=== PATIENT | male | born 1980 | race Caucasian/White ===

== ENCOUNTER 2018-12-30 08:37 | Emergency (ER) | payer OTHER ==
[2018-12-30] MEDS ORDERED: Metoclopramide HCl 10 MG/2 ML VIAL ONE (08:43)
[2018-12-30] MEDS ORDERED: diphenhydrAMINE 50 MG/ML VIAL ONE (08:43)
[2018-12-30 09:23] LABS: #Basophils 0.1 thou/uL (0.0-0.2); #Eosinphils 0.3 thou/uL (0.0-0.7); #Lymphocytes 1.7 thou/uL (1.20-3.40); #Monocytes 0.5 thou/uL (0.11-0.59); #Neutrophils 3.6 thou/uL (1.40-6.50); %Basophils 0.9 % (0.0-1.0); %Eosinophils 4.5 % (0.0-10.0); %Lymphocytes 28.1 % (21.0-51.0); %Monocytes 7.6 % (0.0-10.0); %Neutrophils 58.9 % (42.0-75.0); Hemoglobin 15.7 g/dL (14.0-18.0); Mean Corpuscular HGB CONC 34.8 g/dL (32.0-36.0); Mean Corpuscular Volume 89.1 fL (78.0-98.0); Mean Platelet Volume 8.9 fL (7.4-10.4); Platelet Count 272 thou/uL (130-400); RBC Distribution Width 11.6 % (11.5-14.5); Red Blood Cell (RBC) Count 5.06 mill/uL (4.70-6.10); White Blood Cell (WBC) Count 6.1 thou/uL (4.8-10.8)
--- NOTE | 2018-12-30 09:25 | CT ---
HEAD CT WITHOUT CONTRAST: HISTORY: Headache. COMPARISON: None. FINDINGS: No parenchymal hemorrhage. No extraaxial hematoma. No midline shift. The basilar cisterns are weber nt. Brain volume is age appropriate. Cortical baez white matter differentiation is preserved. No evidence of hydrocephalus. The calvarium is intact. Adequate aeration of the sinuses and mastoid air cells. IMPRESSION: No acute intracranial process. POS: [facility]
[2018-12-30 09:29] LABS: Prothrombin Time 13.5 SEC (12.0-14.7)
[2018-12-30 09:30] LABS: PTT 24.7 SEC (22.9-36.1)
[2018-12-30 09:44] LABS: ALT (SGPT) 66 U/L (8-55); AST (SGOT) 39 U/L (5-34); Alkaline Phosphatase 60 U/L (40-150); Anion Gap 20 mmol/L (10-20); BUN (Urea Nitrogen) 12 mg/dL (8.9-20.6); Bilirubin, Total 0.5 mg/dL (0.2-1.2); Calc. Creatinine Clearance 0 mL/min (70-130); Calcium 10.1 mg/dL (7.8-10.44); Carbon Dioxide 22 mmol/L (22-29); Chloride 103 mmol/L (98-107); Estimated GFR-MDRD 83; Globulin 2.7 g/dL (2.4-3.5); Glucose 125 mg/dL (70-105); Protein, Total 7.7 g/dL (6.0-8.3); Sodium 141 mmol/L (136-145)
== END 2018-12-30 10:07 | disposition home or self-care (01) ==
LOC: ERS 08:37
DX: R51 Headache (principal); K21.9 Gastro-esophageal reflux disease without esophagitis; E78.5 Hyperlipidemia, unspecified; I10 Essential (primary) hypertension; Z79.899 Other long term (current) drug therapy
CPT/HCPCS: 70450; 80053; 85025; 85610; 85730; 96374; 96375; J1200; J2765

== ENCOUNTER 2019-08-15 08:14 | Observation (INO) | payer OTHER ==
[2019-08-15 08:42] LABS: #Basophils 0.1 thou/uL (0.0-0.2); #Eosinphils 0.3 thou/uL (0.0-0.7); #Lymphocytes 1.3 thou/uL (1.20-3.40); #Monocytes 0.7 thou/uL (0.11-0.59); #Neutrophils 6.4 thou/uL (1.40-6.50); %Basophils 0.8 % (0.0-1.0); %Lymphocytes 14.6 % (21.0-51.0); %Monocytes 7.8 % (0.0-10.0); %Neutrophils 72.9 % (42.0-75.0); Mean Corpuscular HGB CONC 35.8 g/dL (32.0-36.0); Mean Corpuscular Hemoglobin 32.1 pg (27.0-31.0); Mean Corpuscular Volume 89.8 fL (78.0-98.0); Mean Platelet Volume 8.6 fL (7.4-10.4); Platelet Count 244 thou/uL (130-400); Red Blood Cell (RBC) Count 4.98 mill/uL (4.70-6.10); White Blood Cell (WBC) Count 8.8 thou/uL (4.8-10.8)
[2019-08-15 09:04] LABS: ALT (SGPT) 85 U/L (8-55); AST (SGOT) 56 U/L (5-34); Albumin 4.7 g/dL (3.5-5.0); Alkaline Phosphatase 68 U/L (40-110); Anion Gap 17 mmol/L (10-20); BUN (Urea Nitrogen) 14 mg/dL (8.9-20.6); Bilirubin, Total 1.1 mg/dL (0.2-1.2); CK (CPK) 214 U/L (30-200); Calc. Creatinine Clearance 0 mL/min (70-130); Calcium 9.3 mg/dL (7.8-10.44); Carbon Dioxide 23 mmol/L (22-29); Chloride 100 mmol/L (98-107); Estimated GFR-MDRD Greater than 90; Glucose 98 mg/dL (70-105); Lipase 25 U/L (8-78); Potassium 3.8 mmol/L (3.5-5.1); Protein, Total 7.7 g/dL (6.0-8.3); Sodium 136 mmol/L (136-145)
--- NOTE | 2019-08-15 09:15 | RAD ---
PORTABLE CHEST 1 VIEW: Date: 08/24/19 Time: 0838 hours HISTORY: Hypertension, tachycardia, chest pain. FINDINGS: The heart size is normal. There is elevation of the right hemidiaphragm. No focal areas of consolidat ion, pneumothoraces, or pleural effusions are seen. IMPRESSION: No acute process. POS: OFF
[2019-08-15] MEDS ORDERED: Aspirin Chewable 81 MG TAB ONE (09:24)
[2019-08-15 11:02] VITALS: BMI 28.5
[2019-08-15] MEDS ORDERED: Ondansetron ODT 4 MG TAB PO PRN (11:13)
[2019-08-15] MEDS ORDERED: Ondansetron PF 4 MG/2 ML Vial IVP PRN (11:13)
[2019-08-15] MEDS ORDERED: Sodium Chloride 0.9% 1,000 ML IV SCH (11:15)
[2019-08-15 11:55] LABS: Troponin I Less than 0.010 ng/mL (< 0.028)
--- NOTE | 2019-08-15 13:00 | CON ---
DATE OF CONSULTATION: HISTORY OF PRESENT ILLNESS: The patient is a pleasant 39-year-old gentleman with a previous history of hypertension who presented with headaches and chest discomfort and elevated blood pressure. The patient states approximately a year and a half ago, he was diagnosed with hypertension. The patient was treated initially with lisinopril. The patient states that he has had episodic episodes where he feels his blood pressure and heart rate are elevated. during which he develops headaches and dizziness. The patient recently developed a cough. He was taken off lisinopril and switched to Diovan. He noted his blood pressure had became increasingly elevated. He went to the emergency room with headaches. He also reported having chest discomfort. He states this began over a day ago. It was a persistent discomfort in the middle of his chest. The patient went to the emergency room and received IV Cardizem. He states with IV Cardizem, his symptoms subsequently resolved. He denies having any present chest discomfort. PAST MEDICAL HISTORY: 1. Hypertension. 2. Dyslipidemia. PAST SURGICAL HISTORY: None. SOCIAL HISTORY: Nonsmoker. FAMILY HISTORY: No strong family history of heart disease. ALLERGIES: NO KNOWN DRUG ALLERGIES. MEDICATIONS: Lipitor 40 daily, HCTZ 25 daily, Nexium 40 daily, and Valsartan 320 daily. PHYSICAL EXAMINATION: GENERAL: This is a well-developed gentleman, in mild distress. VITAL SIGNS: Blood pressure 130/102, heart rate is 103. NECK: No jugular venous distention. LUNGS: Clear to auscultation. HEART: Regular rate and rhythm. Normal S1, S2. No murmurs. ABDOMEN: Nondistended. EXTREMITIES: Show no edema. Vascular and radial pulses are 2+. LABORATORY DATA: Sodium 136, potassium 3.8, chloride 100, bicarbonate 23, BUN 14, creatinine 0.92, glucose was 98. His AST was 56. Troponin less than 0.01. BNP less than 1. White blood cell count 8.8, hemoglobin 16.0, hematocrit 44.7, and platelets 244. EKG revealed sinus tachycardia, otherwise normal ECG. IMPRESSION: 1. Hypertensive crisis. 2. Chest pain. 3. Elevated liver function tests. This gentleman presents with episodic episodes of hypertension associated with tachycardia. From a cardiac standpoint, his EKG is unremarkable and cardiac enzymes revealed no evidence of a myocardial infarction. The patient's symptoms are suggestive of secondary causes of hypertension. We will try to obtain a renal consultation. We will do a 24 hour urine collection for metanephrines and cortisol levels. We will draw renin and aldosterone levels. We will follow this patient with you through his hospitalization. Job ID: [id number] [id number]
[2019-08-15 13:58] LABS: Troponin I Less than 0.010 ng/mL (< 0.028)
[2019-08-15] MEDS ORDERED: Acetaminophen 325 MG TAB PO PRN (13:58)
[2019-08-15] MEDS ORDERED: Senokot S 8.6-50 MG TAB PO PRN (13:58)
--- NOTE | 2019-08-15 14:35 | HP ---
PRIMARY CARE PHYSICIAN: Chung Roman MD CHIEF COMPLAINT: Chest pressure, tachycardia, hypertension. HISTORY OF PRESENT ILLNESS: Mr. Perkins is a 39-year-old male, who reported to the emergency room after having four days of dizziness, tachycardia, hypertension, tendinitis, and headache. He reports that his headache has gotten bad enough in the last couple days, where he has had some nausea and vomiting. 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 and sees Dr. Thompson as an outpatient. He has told him about his symptoms in the last couple of days. They made some changes to his blood pressure and then when his pressure was again elevated with some tachycardia and tendinitis, he decided to come to the emergency room to get further evaluated. EKG showed sinus tach, beats per minute 104, ST segments, T-waves were normal, axis was normal. Vital signs on arrival, blood pressure 137/99, pulse 116, respirations 16, pO2 sats are 99% on room air, temperature 98.2. Troponins x3 are undetectable. He does have a bump in his liver enzymes; AST at 56, ALT 85, CK 214. Otherwise, labs were unremarkable. The patient was admitted to the observation unit for further management and cardiac consult. PAST MEDICAL HISTORY: Pertinent for GERD, ADHD, hypertension, and also depression. He had a right paratracheal mass in 2010. PAST SURGICAL HISTORY: He had a tonsillectomy and vasectomy, which was reversed. FAMILY HISTORY: Father, hypertension. Mom, hypertension and high cholesterol. SOCIAL HISTORY: The patient drinks alcohol occasionally. Denies any drug use or smoking history. CURRENT MEDICATIONS: 1. Lipitor 40 mg p.o. daily. 2. Prilosec 40 mg p.o. daily. 3. Hydrochlorothiazide 25 mg p.o. q.a.m. 4. Valsartan 320 mg p.o. at bedtime. ALLERGIES: NONE. REVIEW OF SYSTEMS: The patient reports no fever or chills. Reports headache. Epistaxis is negative. He does report some tendinitis. Reports some shortness of breath and some chest pressure. Reports nausea and vomiting. Denies any diarrhea, abdominal pain, or constipation. Reports palpitations. Denies any focal weakness. All systems are reviewed and are negative unless mentioned in HPI. PHYSICAL EXAMINATION: VITAL SIGNS: Blood pressure 164/96, pulse is 89, respirations 18, pO2 sats are 98% on room air. CONSTITUTIONAL: The patient appears nontoxic. He is alert and oriented to person, place, and time. HEENT: Head is atraumatic and normocephalic. Eyes, pupils are equally round and reactive to light. Extraocular muscles are intact. ENT, mouth exam is normal. Mucous membranes are moist. NECK: Trachea is midline. Normal range of motion. RESPIRATORY/CHEST: Breath sounds are clear. Chest expansion is equal. CARDIOVASCULAR: Rate tachycardic. Heart sounds are normal. ABDOMEN: Nontender. Bowel sounds are heard. BACK: Normal range of motion. No tenderness. EXTREMITIES: Upper extremities; normal strength, normal range of motion. Lower extremities, motor strength is normal. Normal range of motion. Pedal pulses are normal. SKIN: Warm, dry, and normal in color. PLAN AND ASSESSMENT: 1. Tachycardia with some chest pressure, negative three troponins and no EKG changes. We will ask Cardiology to consult. We would appreciate their recommendations. 2. Hyperlipidemia. The patient takes Lipitor. For the elevated liver function tests, we will hold the doses tonight and recheck liver enzymes in the morning. 3. Deep venous thrombosis and gastrointestinal prophylaxis have been started. 4. Case was discussed with Dr. Thompson, who agrees to plan. 5. Hospital course pending clinical findings. Job ID: [id number]
[2019-08-15] MEDS: diphenhydrAMINE 25 MG CAP PO PRN (21:34)
[2019-08-16 05:37] LABS: #Eosinphils 0.3 thou/uL (0.0-0.7); #Lymphocytes 1.3 thou/uL (1.20-3.40); #Monocytes 0.6 thou/uL (0.11-0.59); #Neutrophils 3.9 thou/uL (1.40-6.50); %Basophils 0.5 % (0.0-1.0); %Eosinophils 5.6 % (0.0-10.0); %Lymphocytes 21.3 % (21.0-51.0); %Monocytes 9.7 % (0.0-10.0); Hemoglobin 14.4 g/dL (14.0-18.0); Mean Corpuscular HGB CONC 35.8 g/dL (32.0-36.0); Mean Corpuscular Hemoglobin 31.9 pg (27.0-31.0); Mean Corpuscular Volume 89.1 fL (78.0-98.0); Mean Platelet Volume 8.5 fL (7.4-10.4); Platelet Count 216 thou/uL (130-400); RBC Distribution Width 11.8 % (11.5-14.5); Red Blood Cell (RBC) Count 4.53 mill/uL (4.70-6.10); White Blood Cell (WBC) Count 6.2 thou/uL (4.8-10.8)
[2019-08-16 05:50] LABS: ALT (SGPT) 70 U/L (8-55); AST (SGOT) 41 U/L (5-34); Albumin 4.3 g/dL (3.5-5.0); Alkaline Phosphatase 69 U/L (40-110); Anion Gap 14 mmol/L (10-20); BUN (Urea Nitrogen) 16 mg/dL (8.9-20.6); Bilirubin, Total 0.8 mg/dL (0.2-1.2); Calc. Creatinine Clearance 136 mL/min (70-130); Calcium 9.2 mg/dL (7.8-10.44); Carbon Dioxide 26 mmol/L (22-29); Chloride 103 mmol/L (98-107); Estimated GFR-MDRD 85; Globulin 2.5 g/dL (2.4-3.5); Glucose 110 mg/dL (70-105); Potassium 3.6 mmol/L (3.5-5.1); Protein, Total 6.8 g/dL (6.0-8.3); Sodium 139 mmol/L (136-145)
--- NOTE | 2019-08-16 08:17 | PRG ---
DATE OF SERVICE: 08/16/2019 SUBJECTIVE: Patient was seen and examined at bedside and overnight events noted. Patient denies any shortness of breath or chest pain or palpitation. No history of nausea or vomiting or diarrhea or fever or chills or cramps. OBJECTIVE: GENERAL: This is a well-built male in no acute distress. VITAL SIGNS: Temperature 97.9. Heart rate 70. Respiratory rate 18. Blood pressure 144/88. HEENT: Atraumatic, normocephalic. Oral mucosa is moist NECK: Supple. CARDIOVASCULAR: S1, S2 heard. Rate and rhythm regular. RESPIRATORY: Clear to auscultation. GASTROINTESTINAL: Abdomen is soft. MUSCULOSKELETAL: No tenderness. No edema. DERMATOLOGIC: No skin rash. NEUROLOGIC: Alert and awake and oriented X3. No focal neurologic deficits. Moving all the extremities. PSYCHIATRIC: Mood and affect normal. LABORATORY DATA: Potassium 3.6, BUN is 16, creatinine is 0.9. ASSESSMENT AND PLAN: 1. Hypertension. Clinical history concerning for secondary causes. Cortisol level is normal. Renin, aldosterone level and metanephrines are pending. I had discussion with the family and they would like to do the CT scan too while he is here. Plan is to do CT adrenal protocol. Renal ultrasound. Doppler is also pending. 2. Plan to check CT today and awaiting the results of the hormonal workup. Blood pressure remained stable. We will continue to titrate medication. 3. Chronic kidney disease, stage 2. 4. Edema is controlled. 5. Tachycardia. Follow with Cardiology and primary team. 6. We will continue to follow. Awaiting the results. Job ID: [id number]
--- NOTE | 2019-08-16 08:41 | ULT ---
US Renal Bilateral STANDARD History: Renal artery stenosis. Hypertension. Comparison: None. Findings: Real-time grayscale, color, and spectral analysis of the kidneys and renal arteries was per formed. Diffuse increased hepatic echotexture. Right kidney measures 12.2 x 5.4 x 6.4 cm and the left kidney measures 10.8 x 5.7 x 5 cm. No renal mass, hydronephrosis, or abnormal calcifications. Prevoid urinary bladder volume is 582 mL. The aortic peak systolic velocity is 85 cm/s. Renal artery peak systolic velocity on the right measur es 140 cm/s and the left renal artery peak systolic measures 125 cm/s. Both renal artery/aortic ratios are less than 2. Right arcuate vessel resistive index is 0.64 and the left arcuate vessel resistive index is 0.61. Impression: No evidence for renal artery stenosis.
[2019-08-16] MEDS: diphenhydrAMINE 25 MG CAP PO PRN (08:53)
[2019-08-16] MEDS ORDERED: Valsartan 80 MG TAB PO SCH (09:00)
[2019-08-16] MEDS ORDERED: Hydrochlorothiazide 25 MG TAB PO SCH (09:00)
[2019-08-16 11:46] VITALS: TEMP 98.1
[2019-08-16] MEDS ORDERED: Iopamidol 370 76% 100 ML VIAL ONE (12:00)
--- NOTE | 2019-08-16 13:25 | CT ---
CT Abdomen Pelvis W WO con History: Adrenal adenoma Comparison: None. Findings: The lung bases are clear. No pericardial effusion. A few specks steatosis. No nephroureterolithiasis. No adrenal mass. No abnormal enhancing mass in the abdomen. No filling defects within the renal calyces proximal ureters nor the renal pelvis by. There is no acute osseous abnormality. Impression: Normal examination of the abdomen. No adrenal adenoma.
[2019-08-16 14:53] VITALS: BP 114/75
--- NOTE | 2019-08-16 18:49 | DIS ---
DATE OF ADMISSION: 08/15/2019 DATE OF DISCHARGE: 08/16/2019 REASON FOR HOSPITALIZATION: Malignant hypertension with headache and chest discomfort. SIGNIFICANT FINDINGS: The patient was found to have hypertensive emergency with headache and chest discomfort. PROCEDURES PERFORMED AND TREATMENTS RENDERED: The patient had maximum medical therapy including consultations from Cardiology and Nephrology - please see full consultation and progress notes for details. Cardiology recommending adjustment of blood pressure medications and better control of his blood pressure, after this was done, the patient's symptoms resolved completely. Nephrology recommending CT scan in addition to 24-hour urine collection, after this was completed, the patient was recommended safe for discharge. The patient recommended safe for discharge by all specialists on 08/16/2019. CONDITION ON DISCHARGE: Stable. SPECIFIC INSTRUCTIONS FOR THE PATIENT/FAMILY: 1. The patient is recommended to take all medications as directed, to be re-evaluated by primary care physician, Cardiology, and Nephrology in the outpatient clinic in the next 5 to 7 days. 2. The patient is recommended to follow up with primary care physician in the next 5 to 7 days. 3. The patient is recommended to follow up with Nephrology in the next 5 to 7 days. 4. The patient is recommended to follow up with Cardiology in the next 1 to 2 weeks. 5. The patient is recommended to keep a blood pressure log several times per day, and with this log, he is to take it to doctor's appointments, so the blood pressure medications can be titrated appropriately in the clinic setting. 6. The patient is recommended to return to acute care hospital immediately if signs or symptoms return, worsen, or any other new symptoms occur. DISCHARGE MEDICATIONS: 1. Diltiazem 300 mg one tablet p.o. at bedtime. 2. Nexium 20 mg one tablet p.o. daily. 3. Valsartan 320 mg one tablet p.o. at bedtime. 4. Hydrochlorothiazide 25 mg one tablet p.o. q.a.m. 5. Atorvastatin 40 mg one tablet p.o. daily. HOSPITAL COURSE: Mr. Perkins is a very pleasant 39-year-old gentleman, who presented to the [facility] on 08/15/2019 with hypertensive emergency with uncontrolled blood pressure in addition to headache and chest discomfort. The patient was admitted to medical unit with telemetry and observed on telemetry for greater than 24 hours without acute abnormalities. The patient was seen and evaluated by Cardiology and Nephrology - please see full consultation and progress notes for details. Cardiology and Nephrology adjusting blood pressure medications appropriately with resolution of symptoms completely. The patient's blood pressure controlled and his symptoms have resolved prior to the discharge. The patient's CBC and complete metabolic panel are within normal limits. The patient had a CT scan of the abdomen - please see full report for details - no acute intraabdominal pathology was identified. The patient with a renal ultrasound - please see full report for details - no renal artery stenosis was identified. After a 24-hour urine collection was completed, the patient was recommended safe for discharge by all specialists. The patient is recommended to follow up with primary care physician and Nephrology in the outpatient clinic in the next 5 to 7 days. The patient is recommended to follow up with Cardiology in the next 1 to 2 weeks. The patient is recommended to keep a blood pressure log and return to acute care hospital immediately if signs or symptoms return, worsen, or any other new symptoms occur. TIME SPENT: Greater than 33 minutes spent coordinating care and discharge process for this patient. Job ID: [id number]
[2019-08-17] MEDS ORDERED: Diltiazem HCl CD 300 mg Capsule PO SCH (21:00)
--- NOTE | 2019-08-18 07:53 | CON ---
DATE OF CONSULTATION: 08/15/2019 CONSULTING PHYSICIAN: Dr. Tobar. REASON FOR CONSULTATION: Episodic hypertension, rule out pheochromocytoma. REASON FOR ADMISSION: Chest pressure, hypertension, tachycardia. HISTORY OF PRESENT ILLNESS: This is a 39-year-old male with history of hypertension, GERD, ADHD, came to the hospital with episodic hypertension and dizziness. He has been followed by Dr. Thompson, but his blood pressure has been having episodic spike and was advised to come to the hospital. He was also found to have hyperlipidemia and elevated liver enzymes and consulted for further followup. Dr. Cruz called me today to rule out pheochromocytoma given his history and also other secondary causes of hypertension. PAST MEDICAL HISTORY: Positive for GERD. ADHD, hypertension, depression. PAST SURGICAL HISTORY: Tonsillectomy, vasectomy. HOME MEDICATIONS: 1. Lipitor. 2. Prilosec. 3. Hydrochlorothiazide. 4. Valsartan. ALLERGIES: NONE. SOCIAL HISTORY: Drinks socially. No smoking or illicit drugs. FAMILY HISTORY: Positive for hypertension. No history of any early heart disease. REVIEW OF SYSTEMS: CONSTITUTIONAL: Negative for weight loss or gain, ability to conduct usual activities. SKIN: Negative for rash, itching. EYES: Negative for double vision, pain. ENT/MOUTH: Negative for nose bleeding, neck stiffness, pain, tenderness. CARDIOVASCULAR: Negative for palpitations, dyspnea on exertion, orthopnea. RESPIRATORY: Negative for shortness of breath, wheezing, cough, hemoptysis, fever or night sweats. GASTROINTESTINAL: Negative for poor appetite, abdominal pain, heartburn, nausea, vomiting, constipation, or diarrhea. GENITOURINARY: Negative for urgency, frequency, dysuria, nocturia. MUSCULOSKELETAL: Negative for pain, swelling. NEUROLOGIC/PSYCHIATRIC: Negative for anxiety, depression. ALLERGY/IMMUNOLOGIC: Negative for skin rash, bleeding tendency. Rest are negative. PHYSICAL EXAMINATION: GENERAL: This is a well-built male, in no apparent distress. VITAL SIGNS: Temperature 97.9, pulse 74, respiratory rate 18, blood pressure 131/82. HEENT: Atraumatic, normocephalic. Oral mucosa moist. NECK: Supple. CV: S1, S2. Rate and rhythm regular. RESPIRATORY: Clear. GI: Abdomen is soft. MUSCULOSKELETAL: No tenderness, no edema. DERMATOLOGIC: No skin rash. NEUROLOGIC: Alert and awake and oriented x3. No focal neurologic deficits. Moving all the extremities. PSYCHIATRIC: Mood and affect normal. LABORATORY DATA: Hemoglobin is 16.0. Potassium is 3.8, BUN is 14, and creatinine is 0.9. ASSESSMENT AND PLAN: 1. Hypertension, episodic, concerning for moderate suspicion for pheochromocytoma. Plan is to check 24-hour urine for metanephrines. We will also check plasma metanephrines. We would also rule out other secondary causes of hypertension. We will check renin-aldosterone level and also we will check cortisol level in the a.m. We will also check a renal Doppler to rule out any renal artery stenosis. No hypokalemia noted, but the patient could be having normokalemic hypoaldosteronism too. 2. Chronic kidney disease, stage 2, stable. 3. Edema, controlled. 4. Overweight, counseled. 5. Plan is to check blood work and we will monitor. Thank you for the consult. Job ID: [id number]
[2019-08-20 12:10] LABS: Metanephrine,Plasma <10 pg/mL (0-62); Normetanephrine,Pl 19 pg/mL (0-145)
[2019-08-20 23:07] LABS: Metanephrine,Ur 73 ug/L (Undefined); Metanephrines Total-24H 223 ug/24 hr (45-290); Normetanephrine,Ur 163 ug/L (Undefined); Normetanephrines-24H U 497 ug/24 hr (82-500)
== END 2019-08-16 15:53 | disposition home or self-care (01) ==
LOC: ERS 08:14 → 2SW 09:43
PROVIDERS: ADMIT Internal Medicine; ATTEND Internal Medicine
DX: I16.1 Hypertensive emergency (principal); R51 Headache; R07.89 Other chest pain; I12.9 Hypertensive chronic kidney disease with stage 1 through stage 4 chronic kidney disease, or unspecified chronic kidney disease; N18.2 Chronic kidney disease, stage 2 (mild); K21.9 Gastro-esophageal reflux disease without esophagitis; F90.9 Attention-deficit hyperactivity disorder, unspecified type; F32.9 Major depressive disorder, single episode, unspecified; E78.5 Hyperlipidemia, unspecified; R79.89 Other specified abnormal findings of blood chemistry; E66.3 Overweight; Z68.28 Body mass index [BMI] 28.0-28.9, adult; Z79.899 Other long term (current) drug therapy
CPT/HCPCS: 36415; 71045; 74178; 76770; 80053; 82088; 82533; 82550; 83690; 83835; 83880; 84244; 84443; 84484; 85025; 85379; 93005; 93975; 96361; 96374; G0378; Q0163; Q9967

== ENCOUNTER 2021-09-16 16:35 | Outpatient (CLI) | payer OTHER ==
[2021-09-16 17:37] LABS: Hemoglobin 14.7 g/dL (13.5-17.5); Mean Corpuscular Hemoglobin 32.1 pg (27.0-33.0); Mean Corpuscular Volume 89.1 fl (81.2-95.1); Mean Platelet Volume 11.4 fl (7.4-10.4); Platelet Count 267 10x3/uL (150-450); RBC Distribution Width 12.2 % (11.5-14.5); Red Blood Cell (RBC) Count 4.58 10x6/uL (4.32-5.72); White Blood Cell (WBC) Count 8.4 10x3/uL (3.5-10.5)
[2021-09-16 17:51] LABS: ALT (SGPT) 61 U/L (8-55); AST (SGOT) 34 U/L (5-34); Albumin 4.8 g/dL (3.5-5.0); Alkaline Phosphatase 59 U/L (40-110); Anion Gap 15 mmol/L (10-20); BUN (Urea Nitrogen) 14 mg/dL (8.9-20.6); Bilirubin, Total 0.8 mg/dL (0.2-1.2); Calc. Creatinine Clearance 0 mL/min (70-130); Calcium 9.7 mg/dL (7.8-10.44); Carbon Dioxide 24 mmol/L (22-29); Chloride 106 mmol/L (98-107); Globulin 2.7 g/dL (2.4-3.5); Glucose 90 mg/dL (70-105); Potassium 3.8 mmol/L (3.5-5.1); Protein, Total 7.5 g/dL (6.0-8.3); Sodium 141 mmol/L (136-145)
[2021-09-17 15:34] LABS: SARS-CoV-2 PCR by NAA Not Detected (NotDetected)
== END 2021-09-16 16:36 | disposition home or self-care (01) ==
LOC: LABBT 16:35
PROVIDERS: ATTEND Internal Medicine Cardiovascular Disease
DX: Z01.812 Encounter for preprocedural laboratory examination (principal); Z20.822 Contact with and (suspected) exposure to COVID-19
CPT/HCPCS: 80053; 85027; U0003; U0005